=== PATIENT | female | born 1990 | race Two or more races ===

== ENCOUNTER 2020-03-28 18:37 | Observation (INO) | payer SELFPAY ==
[2020-03-28] MEDS ORDERED: ACETAMINOPHEN 325 MG TABLET. PO PRN (19:15)
[2020-03-28] MEDS ORDERED: IV RINGERS,LACTATED 1000ML 1,000 ML IV SCH (19:15)
[2020-03-28 20:08] LABS: BILIRUBIN,URINE NEGATIVE (NEG); CLARITY,URINE CLEAR; COLOR,URINE YELLOW; NITRITE,URINE NEGATIVE (NEG); PROTEIN,URINE NEGATIVE (NEG-TRACE); UROBILINOGEN,URINE 0.2 mg/dL (0.2 mg/dL)
[2020-03-28 20:15] LABS: BACTERIA,URINE MODERATE /HPF (0-FEW)
[2020-03-28 20:16] LABS: RBC,URINE 0 /HPF (0-2); YEAST,URINE PRESENT /HPF
[2020-03-28] MEDS ORDERED: hydrOXYzine 25 MG TABLET PO PRN (20:30)
== END 2020-03-28 20:40 | disposition home or self-care (01) ==
LOC: 3 SO LND 18:37
PROVIDERS: ADMIT Obstetrics & Gynecology; ATTEND Obstetrics & Gynecology
DX: O62.9 Abnormality of forces of labor, unspecified (principal); O26.893 Other specified pregnancy related conditions, third trimester; N89.8 Other specified noninflammatory disorders of vagina; Z3A.34 34 weeks gestation of pregnancy; Z79.899 Other long term (current) drug therapy
CPT/HCPCS: 59025; 81001; 87086; G0378; G0379

== ENCOUNTER 2020-04-02 13:06 | Observation (INO) | payer SELFPAY ==
[2020-04-02] MEDS ORDERED: IV RINGERS,LACTATED 1000ML 1,000 ML IV SCH (14:00)
[2020-04-02 14:06] LABS: BILIRUBIN,URINE NEGATIVE (NEG); CLARITY,URINE CLEAR; COLOR,URINE YELLOW; NITRITE,URINE NEGATIVE (NEG); PH,URINE 7.5 (<5.0-8.0); PROTEIN,URINE NEGATIVE (NEG-TRACE); UROBILINOGEN,URINE 0.2 mg/dL (0.2 mg/dL)
[2020-04-02 14:12] LABS: AMNIO PT NEGATIVE
[2020-04-02 14:13] LABS: BARBITURATES NEG (NEG); BENZODIAZEPINES NEG (NEG); CANNABINOIDS NEG (NEG); COCAINE NEG (NEG); METHADONE NEG (NEG); OPIATES NEG (NEG); PHENCYCLIDINE NEG (NEG)
[2020-04-02 14:14] LABS: AMPHETAMINE/METHAMPHETAMINE NEG (NEG); BACTERIA,URINE 0 /HPF (0-FEW); RBC,URINE 0 /HPF (0-2); WBC,URINE OCC /HPF (0-4)
== END 2020-04-02 16:05 | disposition home or self-care (01) ==
LOC: 3 SO LND 13:06
PROVIDERS: ADMIT Obstetrics & Gynecology; ATTEND Obstetrics & Gynecology
DX: O42.913 Preterm premature rupture of membranes, unspecified as to length of time between rupture and onset of labor, third trimester (principal); O36.8130 Decreased fetal movements, third trimester, not applicable or unspecified; Z3A.35 35 weeks gestation of pregnancy; Z79.899 Other long term (current) drug therapy
CPT/HCPCS: 36415; 80307; 81001; 84112; G0378; G0379; 59025

== ENCOUNTER 2021-04-21 09:28 | Emergency (ER) | payer MEDICAID ==
[~2021-04-21] VITALS: Ht 157.5 cm; Wt 88.9 kg
[2021-04-21 10:05] VITALS: BP 139/88
[2021-04-21] MEDS ORDERED: EPIPEN 2-P0.3 MG/0.3 IM (10:14)
--- NOTE | 2021-04-21 10:15 | PHYS DOC ---
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 Mostly in the arms and the upper legs. Waxes and wanes. Is getting better with Benadryl. States that he had a tingling feeling in her tongue briefly, but no swelling. No shortness of breath or chest pain. No nausea/vomiting, diarrhea, or abdominal discomfort. No new medications. No new soaps, detergents, or hygiene products. No new foods. She cannot think of any new exposures. She does state that she has had cough and runny nose and a mild sore throat over the past several days. Has not had a Covid test. Review of Systems: Review of Systems: Constitutional: Denies fever or chills. [] Eyes: Denies change in visual acuity. [] HENT: Reports nasal congestion, sore throat, runny nose. Respiratory: Denies cough or shortness of breath. [] Cardiovascular: Denies chest pain or edema. [] GI: Denies abdominal pain, nausea, vomiting, bloody stools or diarrhea. [] : Denies dysuria. [] Musculoskeletal: Denies back pain or joint pain. [] Integument: Reports hives. Neurologic: Denies headache, focal weakness or sensory changes. [] Heart Score: C/O Chest Pain: No Allergies: Allergies: Allergies Coded Allergies Type Severity Reaction Last Updated Verified fluconazole Allergy Severe Anaphylaxis 03/28/20 Yes Physical Exam: PE: Constitutional: Well developed, well nourished, no acute distress, non-toxic appearance. [] HENT: Normal appearance of the lips, tongue, uvula without signs of edema. No tonsillar exudates. Posterior oropharynx clear. Neck: Normal range of motion, no tenderness, supple, no stridor. [] Cardiovascular:Heart rate regular rhythm, no murmur [] Lungs & Thorax: Normal work of breathing. No wheezing. Bilateral breath sounds clear to auscultation [] Abdomen: Bowel sounds normal, soft, no tenderness, no masses, no pulsatile masses. [] Skin: Scattered urticaria to the upper thighs and the forearms. Extremities: No tenderness, no cyanosis, no clubbing, ROM intact, no edema. [] Neurologic: Alert and oriented X 3, normal motor function, normal sensory function, no focal deficits noted. [] Psychologic: Affect normal, judgement normal, mood normal. [] EKG: EKG: [] Radiology/Procedures: Radiology/Procedures: [] Course & Med Decision Making: Course & Med Decision Making Pertinent Labs and Imaging studies reviewed. (See chart for details) Patient is a 30-year-old female presents with concern of hives. No new expos ures evident. Well-appearing with normal vital signs, no wheezing, no evidence of oropharyngeal swelling. No evidence of anaphylaxis. Improving with Benadryl. Will advise addition of cetirizine and famotidine [id number]. She does have a history of anaphylaxis, and is out of her EpiPen, so we will refill. She also incidentally complains of several days of nasal congestion, cough, sore throat. Covid PCR sent. Bin Disclaimer: Bin Disclaimer: This electronic medical record was generated, in whole or in part, using a voice recognition dictation system. 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 Your Covid swab is pending. Please self isolate until you know the results of this test. If the test returned positive please self isolate until 10 days of symptom onset with at least 3 days of improving symptoms and no fevers. Scripts Epinephrine (EPIPEN 2-TREMAYNE) 0.3 Mg/0.3 Ml Auto.injct 1 SYR IM 1X PRN PRN for ANAPHYLAXIS for 1 Day, #1 PACKET 0 Refills Prov: MITCH MAK MD 04/21/21 MITCH MAK MD Apr 21, 2021 10:15
--- NOTE | 2021-04-22 15:19 | NUR ---
IP: Attempted to contact pt concerning covid results. Phone provided is not a correct number.
== END 2021-04-21 10:33 | disposition home or self-care (01) ==
LOC: ER 09:28
DX: L50.9 Urticaria, unspecified (principal); Z20.822 Contact with and (suspected) exposure to COVID-19; R09.81 Nasal congestion; Z88.8 Allergy status to other drugs, medicaments and biological substances
CPT/HCPCS: 99283; U0003; U0005

== ENCOUNTER → 2021-06-30 | Outpatient (CLI) | payer MEDICAID ==
[~2021-06-30] MED LIST: EPIPEN 2-P0.3 MG/0.3 IM
--- NOTE | 2021-06-30 12:10 | RAD ---
US PELVIS COMPLETE Clinical Indication: Reason: Abnormal Uterine Bleeding; Menses x 3 weeks Comparison: None. TECHNIQUE: Real-time ultrasound imaging of the pelvis using transabdominal window is performed. Findings: The uterus measures 8.8 x 6 x 3.7 cm. No focal abnormality of the myometrium. Endometrial stripe is u pper limits of normal measuring up to 1.5 cm. The right ovary measures 2.3 x 3.1 x 1.7 cm. The left ovary measures 3.3 x 3.3 x 1.9 cm. The ovaries demonstrate normal blood flow. There is no evidence of adnexal mass. No pelvic free fluid is identified. IMPRESSION: 1. The endometrial stripe thickness is upper limits of normal. 2. Normal blood flow in the ovaries. Electronically signed by: Mehul Martinez MD (06/30/2021 12:07 PM) [id number]
== END ==
LOC: US 11:22
PROVIDERS: ATTEND Obstetrics & Gynecology
DX: N92.0 Excessive and frequent menstruation with regular cycle (principal); N93.9 Abnormal uterine and vaginal bleeding, unspecified
CPT/HCPCS: 76856